=== PATIENT | female | born 1995 | race Caucasian/White ===

== ENCOUNTER 2016-12-06 05:05 | Emergency (ER) | payer OTHER, MEDICAID ==
[2016-12-06 05:16] VITALS: BP 137/85
[2016-12-06] MEDS ORDERED: Ketorolac INJ* 60 MG/2 ML VIAL IM ONE (05:32)
[2016-12-06] MEDS ORDERED: Ketorolac INJ* 30 MG/ML 1 ML VIAL ONE (05:46)
[2016-12-06] MEDS ORDERED: Ketorolac INJ* 30 MG/ML 1 ML VIAL IM ONE (05:48)
--- NOTE | 2016-12-06 06:01 | ED ---
Seth Lowry Matthew, scribed for Serafin Mejia MD on 12/06/16 at 0553 . Throat Pain/Nasal Congestion - HPI Summary HPI Summary: A 21 y/o female presents to the ED with dental pain since 12/04/16. The patient saw her dentist yesterday, but continues to have pain. 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 The pain is lcoated on the top and bottom of the teeth on the right side of the jaw. The pain radiates throughout the jaw, neck and into the posterior head. - History of Current Complaint Chief Complaint: EDDentalPain Hx Obtained From: Patient Onset/Duration: Lasting Days, Still Present Severity: Moderate Cough: None - Allergies/Home Medications Allergies/Adverse Reactions: Allergies Allergy/AdvReac Type Severity Reaction Status Date / Time Aspirin Allergy Unknown Shakes Verified 05/21/16 11:00 PMH/Surg Hx/FS Hx/Imm Hx Endocrine/Hematology History: Denies: Hx Anticoagulant Therapy, Hx Diabetes, Hx Thyroid Disease Cardiovascular History: Denies: Hx Hypertension, Hx Pacemaker/ICD Respiratory History: Denies: Hx Asthma, Hx Chronic Obstructive Pulmonary Disease (COPD) GI History: Denies: Hx Ulcer History: Denies: Hx Renal Disease Neurological History: Denies: Hx Dementia, Hx Seizures Psychiatric History: Reports: Hx Depression, Other Psychiatric Issues/Disorders Denies: Hx Substance Abuse - Surgical History Surgery Procedure, Year, and Place: surgical age 12 Infectious Disease History: No Infectious Disease History: Denies: Hx Clostridium Difficile, Hx Hepatitis, Hx Human Immunodeficiency Virus (HIV), Hx of Known/Suspected MRSA, Hx Shingles, Hx Tuberculosis, Hx Known/ Suspected VRE, Hx Known/Suspected VRSA, History Other Infectious Disease, Traveled Outside the [place] in Last 30 Days - Family History Known Family History: Positive: Hypertension, Diabetes Negative: Blood Disorder - Social History Alcohol Use: Rare Substance Use Type: Reports: None Smoking Status (MU): Light Every Day Tobacco Smoker Type: Cigarettes Amount Used/How Often: 1 cig./day Length of Time of Smoking/Using Tobacco: 9 years Have You Smoked in the Last Year: No Review of Systems Constitutional: Negative Eyes: Negative Positive: Dental Pain - top and bottom of the right side of the mouth Cardiovascular: Negative Respiratory: Negative Gastrointestinal: Negative Genitourinary: Negative Musculoskeletal: Negative Skin: Negative Neurological: Negative Psychological: Normal All Other Systems Reviewed And Are Negative: Yes Physical Exam Triage Information Reviewed: Yes Vital Signs On Initial Exam: Initial Vitals Temp Pulse Resp BP Pulse Ox 99.1 F 86 18 137/85 99 12/06/16 05:11 12/06/16 05:11 12/06/16 05:11 12/06/16 05:11 12/06/16 05:11 Vital Signs Reviewed: Yes Appearance: Positive: Well-Appearing, Pain Distress - mild pain Skin: Positive: Warm Head/Face: Positive: Normal Head/Face Inspection Dental: Positive: Other - generalized poor dentition Respiratory/Lung Sounds: Positive: Breath Sounds Present Neurological: Positive: Alert, Oriented to Person Place, Time Psychiatric: Positive: Affect/Mood Appropriate Diagnostics - Vital Signs Vital Signs Temp Pulse Resp BP Pulse Ox 12/06/16 05:14 99.1 F 83 16 137/85 99 12/06/16 05:11 99.1 F 86 18 137/85 99 - Laboratory Lab Statement: Any lab studies that have been ordered have been reviewed, and results considered in the medical decision making process. EENT Course/Dx - Diagnoses Provider Diagnoses: Pain, dental Discharge - Discharge Plan Condition: Stable Disposition: HOME Patient Education Materials: Toothache (ED) Referrals: Chevy Shah MD [Primary Care Provider] - 3 Days Additional Instructions: Please follow-up with your dentist as soon as possible. The documentation as recorded by the Seth mckeon Matthew accurately reflects the service I personally performed and the decisions made by , Serafin Mejia MD.
[2016-12-06] MEDS ORDERED: oxyCODONE/Acetamin 5/325 MG* TAB PO ONE (06:24)
[2016-12-06] MEDS ORDERED: oxyCODONE/Acetamin 5/325 MG* TAB ONE (06:27)
== END 2016-12-06 06:33 | disposition home or self-care (01) ==
LOC: ED 05:05
DX: K08.89 Other specified disorders of teeth and supporting structures (principal); F17.210 Nicotine dependence, cigarettes, uncomplicated
CPT/HCPCS: 96374; 96375; 99282; A9270-GY; J1885

== ENCOUNTER 2017-03-17 19:10 | Emergency (ER) | payer OTHER, MEDICAID ==
[2017-03-17 19:37] VITALS: BP 128/80
--- NOTE | 2017-03-18 20:20 | UC ---
UC General HPI - HPI Summary HPI Summary: One week of dizziness and weakness. Concern for . Intermittent vomiting for three days. Intermittent spotting this week. No fever. No sore throat. No headache. No abdominal pain. No cough. No neck stiffness. - History of Current Complaint Chief Complaint: UCDizziness Stated Complaint: WEAK,DIZZY,CRAMPS,PREG? VOMITING Time Seen by Provider: 03/17/17 19:17 Hx Obtained From: Patient, Family/Valve Inserter Hx Last Menstrual Period: 02/28/17 Onset/Duration: Gradual Onset, Lasting Weeks, Worse Since - three days Onset Severity: Mild Current Severity: Moderate Pain Intensity: 0 Associated Signs & Symptoms: Positive: Dizziness, Weakness. Negative: Abdominal Pain, Cough, Diarrhea, Dysuria, Decreased Oral Intake, Edema, Fever, Headache, Nausea, Palpitations, SOB, Trauma, Vomiting, Wheezing - Allergy/Home Medications Allergies/Adverse Reactions: Allergies Allergy/AdvReac Type Severity Reaction Status Date / Time Aspirin Allergy Unknown Shakes Verified 12/06/16 20:22 PMH/Surg Hx/FS Hx/Imm Hx Previously Healthy: Yes Other History Of: Negative For: Anticoagulant Therapy - Surgical History Surgical History: Yes Surgery Procedure, Year, and Place: surgical age 12 - Family History Known Family History: Positive: Hypertension, Diabetes Negative: Blood Disorder - Social History Occupation: Student Lives: With Family Alcohol Use: Rare Substance Use Type: None Smoking Status (MU): Light Every Day Tobacco Smoker Type: Cigarettes Amount Used/How Often: 1 cig./day Length of Time of Smoking/Using Tobacco: 9 years Have You Smoked in the Last Year: No Cessation Counseling: Patient Advised to Stop - Immunization History Most Recent Influenza Vaccination: season Most Recent Tetanus Shot: utd Most Recent Pneumonia Vaccination: never Review of Systems Constitutional: Fatigue Skin: Negative Eyes: Negative ENT: Negative Respiratory: Negative Cardiovascular: Negative Gastrointestinal: Negative Genitourinary: Frequency Motor: Negative Neurovascular: Negative Musculoskeletal: Negative Neurological: Weakness Psychological: Negative All Other Systems Reviewed And Are Negative: Yes Physical Exam Triage Information Reviewed: Yes Appearance: No Pain Distress, Well-Nourished, Other: - patinet seems socially withdrawn Vital Signs: Initial Vital Signs Pulse 90 03/17/17 19:25 Resp 18 03/17/17 19:25 BP 128/80 03/17/17 19:25 Pulse Ox 99 03/17/17 19:25 Vital Signs Reviewed: Yes Eye Exam: Normal Eyes: Positive: Conjunctiva Clear ENT Exam: Normal ENT: Positive: Normal ENT inspection, TMs normal Dental Exam: Normal Neck exam: Normal Neck: Positive: Supple, Nontender, No Lymphadenopathy Respiratory Exam: Normal Respiratory: Positive: Chest non-tender, Lungs clear, Normal breath sounds, No respiratory distress, No accessory muscle use Cardiovascular Exam: Normal Cardiovascular: Positive: RRR, No Murmur, Pulses Normal Abdominal Exam: Normal Abdomen Description: Positive: Nontender, No Organomegaly Musculoskeletal Exam: Normal Musculoskeletal: Positive: Strength Intact, ROM Intact Neurological Exam: Normal Psychological Exam: Normal Psychological: Positive: Normal Response To Family Skin Exam: Normal Course/Dx - Course Course Of Treatment: Patient agreed to seek care at emergency department - Differential Dx - Multi-Symptom Differential Diagnoses: Metabolic Abnormality, Urinary Tract Infection Provider Diagnoses: weakness dizziness - Physician Notifications Instructed by Provider To: MD Will See In ED Discharge - Discharge Plan Condition: Stable Disposition: HOME Patient Education Materials: Weakness (ED), Dizziness (ED) Referrals: Chevy Shah MD [Primary Care Provider] - Additional Instructions: YOU HAVE STATED THAT YOU TO WANT TO GO BY PRIVATE CAR FOR PROMPT EVALAUTION AT THE EMERGENCY DEPARTMENT, WHILE THIS PLAN IS AGREEABLE, PLEASE DRIVE SAFELY IN TRANSIT.
== END 2017-03-17 20:22 | disposition home or self-care (01) ==
LOC: UCEAST 19:10
DX: R53.1 Weakness (principal); R42 Dizziness and giddiness; R11.10 Vomiting, unspecified; N92.1 Excessive and frequent menstruation with irregular cycle; Z88.6 Allergy status to analgesic agent; F17.210 Nicotine dependence, cigarettes, uncomplicated; Z32.02 Encounter for pregnancy test, result negative
CPT/HCPCS: 81003; 84702; 93005; 99211; G0463

== ENCOUNTER 2017-03-17 20:41 | Emergency (ER) | payer OTHER, MEDICAID ==
[2017-03-17 23:18] VITALS: BP 129/83
[2017-03-18 00:23] LABS: Hematocrit 42 % (35-47); Hemoglobin 14.2 g/dl (12.0-16.0); Mean Corpuscular HGB Conc 34 g/dl (31-36); Mean Corpuscular Hemoglobin 29 pg (27-31); Mean Corpuscular Volume 86 fL (80-97); Mean Platelet Volume 9 um3 (7.4-10.4); Red Blood Count 4.87 10^6/ul (4.0-5.4); Red Cell Distribution Width 13 % (10.5-15); White Blood Count 11.4 10^3/ul (3.5-10.8)
[2017-03-18 00:42] LABS: ALT 16 U/L (7-52); AST 13 U/L (13-39); Albumin 4.4 g/dL (3.2-5.2); Alkaline Phosphatase 68 U/L (34-104); Anion Gap 8 mmol/L (2-11); BUN/Creatinine Ratio 20.6 (8-20); Blood Urea Nitrogen 14 mg/dL (6-24); CO2 Carbon Dioxide 23 mmol/L (22-32); Calcium 9.2 mg/dL (8.6-10.3); Chloride 105 mmol/L (101-111); EGFR African American 139.1 (>60); EGFR Non-African American 108.2 (>60); Globulin 2.9 g/dL (2-4); Glucose 99 mg/dL (70-100); Lipase 15 U/L (11.0-82.0); Potassium 3.5 mmol/L (3.5-5.0); Sodium 136 mmol/L (133-145); Total Protein 7.3 g/dL (6.4-8.9)
[2017-03-18] MEDS ORDERED: DOXYcycline CAP(*) 100 MG PO ONE (02:09)
[2017-03-18] MEDS ORDERED: metroNIDAZOLE TAB* 250 MG PO ONE (02:09)
[2017-03-18] MEDS ORDERED: cefTRIAXone VIAL(*) 250 MG VIAL IM ONE (02:09)
--- NOTE | 2017-03-18 02:13 | ED ---
GI/ HPI - HPI Summary HPI Summary: 21F presents with pelvic pain and fevers for a couple days. She has been having uterus cramping. She is unsure if she has other STDs as she just finished a course of valtrex. She states her weight has been fluctuating. She admits to dizziness and a headache. She denies any chest pain, SOB, or cough. She denies eating anything different or every having this pain before. She denies any pain with urination, frequency, urgency, hematuria. She admits to occasionally spotting but had negative at urgent care. She admits to nausea and vomiting. - History of Current Complaint Chief Complaint: EDDizziness Time Seen by Provider: 03/17/17 23:56 Stated Complaint: DIZZINESS/HEADACHE/NAUSEA Hx Last Menstrual Period: 02/28/17 Pain Intensity: 6 - Allergy/Home Medications Allergies/Adverse Reactions: Allergies Allergy/AdvReac Type Severity Reaction Status Date / Time Aspirin Allergy Unknown Shakes Verified 12/06/16 20:22 PMH/Surg Hx/FS Hx/Imm Hx Endocrine/Hematology History: Denies: Hx Anticoagulant Therapy, Hx Diabetes, Hx Thyroid Disease Cardiovascular History: Denies: Hx Hypertension, Hx Pacemaker/ICD Respiratory History: Denies: Hx Asthma, Hx Chronic Obstructive Pulmonary Disease (COPD) GI History: Denies: Hx Ulcer History: Denies: Hx Renal Disease Neurological History: Denies: Hx Dementia, Hx Seizures Psychiatric History: Reports: Hx Depression, Other Psychiatric Issues/Disorders Denies: Hx Substance Abuse - Surgical History Surgery Procedure, Year, and Place: surgical age 12 - Immunization History Date of Tetanus Vaccine: utd Date of Influenza Vaccine: utd Infectious Disease History: No Infectious Disease History: Denies: Hx Clostridium Difficile, Hx Hepatitis, Hx Human Immunodeficiency Virus (HIV), Hx of Known/Suspected MRSA, Hx Shingles, Hx Tuberculosis, Hx Known/ Suspected VRE, Hx Known/Suspected VRSA, History Other Infectious Disease, Traveled Outside the [place] in Last 30 Days - Family History Known Family History: Positive: Hypertension, Diabetes Negative: Blood Disorder - Social History Alcohol Use: Rare Substance Use Type: Reports: Marijuana Substance Use Comment - Amount & Last Used: nohting recently Smoking Status (MU): Light Every Day Tobacco Smoker Type: Cigarettes Amount Used/How Often: 1 cig./day Length of Time of Smoking/Using Tobacco: 9 years Have You Smoked in the Last Year: No Review of Systems Positive: Fever Negative: Chest Pain Negative: Shortness Of Breath Positive: Abdominal Pain, Vomiting, Nausea. Negative: Diarrhea All Other Systems Reviewed And Are Negative: Yes Physical Exam Triage Information Reviewed: Yes Vital Signs On Initial Exam: Initial Vitals Temp Pulse Resp BP Pulse Ox 98.7 F 78 16 129/79 98 03/17/17 20:43 03/17/17 20:43 03/17/17 20:43 03/17/17 20:43 03/17/17 20:43 Vital Signs Reviewed: Yes Appearance: Positive: Well-Appearing Skin: Positive: Warm, Dry Head/Face: Positive: Normal Head/Face Inspection Eyes: Positive: Normal, EOMI, ADALGISA, Conjunctiva Clear ENT: Positive: Normal ENT inspection, Pharynx normal, TMs normal Respiratory/Lung Sounds: Positive: Clear to Auscultation, Breath Sounds Present Cardiovascular: Positive: Normal, RRR Abdomen Description: Positive: Soft, Other: - tenderness in bilateral lower quadrants Bowel Sounds: Positive: Present Pelvic Exam: Positive: external exam normal, speculum exam normal, discharge, tender w/ cervical motion - Dianna Coma Scale Coma Scale Total: 15 Diagnostics - Vital Signs Vital Signs Temp Pulse Resp BP Pulse Ox 03/17/17 23:13 99 F 77 16 129/83 98 03/17/17 22:00 98.4 F 81 16 110/76 100 03/17/17 20:43 98.7 F 78 16 129/79 98 - Laboratory Lab Results: Lab Results 03/18/17 03/18/17 Range/Units 00:12 00:12 WBC 11.4 H (3.5-10.8) 10^3/ul RBC 4.87 (4.0-5.4) 10^6/ul Hgb 14.2 (12.0-16.0) g/dl Hct 42 (35-47) % MCV 86 (80-97) fL MCH 29 (27-31) pg MCHC 34 (31-36) g/dl RDW 13 (10.5-15) % Plt Count 257 (150-450) 10^3/ul MPV 9 (7.4-10.4) um3 Neut % (Auto) 58.4 (38-83) % Lymph % (Auto) 34.9 (25-47) % Gosper % (Auto) 5.1 (1-9) % Eos % (Auto) 1.3 (0-6) % Baso % (Auto) 0.3 (0-2) % Absolute Neuts (auto) 6.7 (1.5-7.7) 10^3/ul Absolute Lymphs (auto) 4.0 (1.0-4.8) 10^3/ul Absolute Monos (auto) 0.6 (0-0.8) 10^3/ul Absolute Eos (auto) 0.2 (0-0.6) 10^3/ul Absolute Basos (auto) 0 (0-0.2) 10^3/ul Absolute Nucleated RBC 0 10^3/ul Nucleated RBC % 0 Sodium 136 (133-145) mmol/L Potassium 3.5 (3.5-5.0) mmol/L Chloride 105 (101-111) mmol/L Carbon Dioxide 23 (22-32) mmol/L Anion Gap 8 (2-11) mmol/L BUN 14 (6-24) mg/dL Creatinine 0.68 (0.51-0.95) mg/dL Est GFR ( Amer) 139.1 (>60) Est GFR (Non-Af Amer) 108.2 (>60) BUN/Creatinine Ratio 20.6 H (8-20) Glucose 99 (70-100) mg/dL Calcium 9.2 (8.6-10.3) mg/dL Total Bilirubin 0.50 (0.2-1.0) mg/dL AST 13 (13-39) U/L ALT 16 (7-52) U/L Alkaline Phosphatase 68 (34-104) U/L C-React Prot High Sens 2.70 mg/L Total Protein 7.3 (6.4-8.9) g/dL Albumin 4.4 (3.2-5.2) g/dL Globulin 2.9 (2-4) g/dL Albumin/Globulin Ratio 1.5 (1-3) Lipase 15 (11.0-82.0) U/L Beta HCG, Quant < 0.60 mIU/mL Result Diagrams: 03/18/17 00:12 03/18/17 00:12 Lab Statement: Any lab studies that have been ordered have been reviewed, and results considered in the medical decision making process. GIGU Course/Dx - Course Course Of Treatment: 21F presents with pelvic pain and fevers for a couple days. She has been having uterus cramping. She is unsure if she has other STDs as she just finished a course of valtrex. She states her weight has been fluctuating. She admits to dizziness and a headache. She denies any chest pain , SOB, or cough. She denies eating anything different or every having this pain before. She denies any pain with urination, frequency, urgency, hematuria. on exam has tenderness in bilateral lower quadrants. pelvic exam CMT. labs wbc 11. will treat for PID. patient understands and agrees with plan. - Diagnoses Differential Diagnoses - Female: Ovarian Cyst, Pelvic Inflammatory Disease, Urinary Tract Infection Provider Diagnoses: PID (acute pelvic inflammatory disease) Discharge - Discharge Plan Condition: Good Disposition: HOME Prescriptions: DOXYcycline CAP(*) [DOXYcycline 100MG CAP(*)] 100 mg PO BID #27 cap Metronidazole [Flagyl 500 MG TAB] 500 mg PO BID #27 tab Ondansetron ODT TAB* [Zofran 4 MG Odt TAB*] 4 mg PO Q6H PRN #16 tab.odt PRN Reason: Nausea Patient Education Materials: Pelvic Inflammatory Disease (ED) Forms: *Work Release Referrals: Chevy Shah MD [Primary Care Provider] - Additional Instructions: Take doxycycline twice a day for 14 days, use sunscreen and take with food Take flagyl twice a day for 14 days, avoid alcohol Drink plenty of fluids Take Zofran every 6 hours as needed for nausea Return to ED if develop persistent fever, unable to keep anything down, or any new or worsening symptoms
[2017-03-18] MEDS ORDERED: Lidocaine 1%* 5 ML VIAL ONE (02:24)
== END 2017-03-18 02:44 | disposition home or self-care (01) ==
LOC: ED 20:41
DX: N73.9 Female pelvic inflammatory disease, unspecified (principal); R10.9 Unspecified abdominal pain; R50.9 Fever, unspecified; R10.2 Pelvic and perineal pain; R42 Dizziness and giddiness; R11.2 Nausea with vomiting, unspecified; F17.210 Nicotine dependence, cigarettes, uncomplicated
CPT/HCPCS: 36415; 80053; 83690; 84702; 85025; 86141; 86703; 87480; 87491; 87510; 87591; 87661; 96372; 99283; A9270-GY; J0696

== ENCOUNTER 2017-06-09 12:37 | Emergency (ER) | payer MEDICAID, OTHER ==
[2017-06-09 12:46] VITALS: BP 120/72
--- NOTE | 2017-06-09 14:11 | UC ---
Respiratory Complaint HPI - HPI Summary HPI Summary: Patient presents with 1-2 week onset complaints of generalized fatigue and malaise, sore throat, chest congestion and persistent coughing. She reports nasal drainage, PND, that bothers her at night, now hears wheezing at night. She also reports nausea. Shes reports low grade fevers. She has not been able to go to work due to her illness. She states she has been exposed to other members in the house that have been ill with respiratory illness. - History of Current Complaint Chief Complaint: UCGeneralIllness Stated Complaint: SORE THROAT Time Seen by Provider: 06/09/17 13:50 Hx Obtained From: Patient Hx Last Menstrual Period: Unknown ?: No Onset/Duration: Gradual Onset, Lasting Days Timing: Constant Severity Initially: Mild Severity Currently: Moderate Pain Intensity: 2 Pain Scale Used: 0-10 Numeric Character: Cough: Productive Aggravating Factors: Deep Breaths, Recumbent Position Alleviating Factors: Upright Position, Spontaneous Resolution Associated Signs And Symptoms: Positive: Fever, Chills, Wheezing, URI, Nasal Congestion, Sinus Discomfort - Risk Factors Pulmonary Embolism Risk Factors: Negative Pseudomonas Risk Factors: Negative Tuberculosis Risk Factors: Negative - Allergies/Home Medications Allergies/Adverse Reactions: Allergies Allergy/AdvReac Type Severity Reaction Status Date / Time Aspirin Allergy Unknown Shakes Verified 06/09/17 12:46 PMH/Surg Hx/FS Hx/Imm Hx Previously Healthy: Yes Other History Of: Negative For: Anticoagulant Therapy - Surgical History Surgical History: Yes Surgery Procedure, Year, and Place: surgical age 12 - Family History Known Family History: Positive: Hypertension, Diabetes Negative: Blood Disorder - Social History Occupation: Employed Full-time Lives: Alone Alcohol Use: None Substance Use Type: None Substance Use Comment - Amount & Last Used: nohting recently Smoking Status (MU): Current Some Day Smoker Type: Cigarettes Amount Used/How Often: 1 cig./week Length of Time of Smoking/Using Tobacco: 9 years Have You Smoked in the Last Year: No - Immunization History Most Recent Influenza Vaccination: Not UTD Most Recent Tetanus Shot: utd Most Recent Pneumonia Vaccination: never Review of Systems Constitutional: Fever, Chills, Fatigue Skin: Negative Eyes: Negative ENT: Sore Throat, Ear Ache, Nasal Discharge, Sinus Congestion Respiratory: Cough Cardiovascular: Negative Gastrointestinal: Nausea Genitourinary: Negative Motor: Negative Neurovascular: Negative Musculoskeletal: Negative Neurological: Negative Psychological: Negative All Other Systems Reviewed And Are Negative: Yes Physical Exam Triage Information Reviewed: Yes Appearance: Ill-Appearing Vital Signs: Initial Vital Signs Temp 98.2 F 06/09/17 12:41 Pulse 86 06/09/17 12:41 Resp 20 06/09/17 12:41 BP 120/72 06/09/17 12:41 Pulse Ox 99 06/09/17 12:41 Vital Signs Reviewed: Yes Eye Exam: Normal ENT: Positive: Nasal congestion, Nasal drainage Neck exam: Normal Neck: Positive: 1 Respiratory Exam: Normal Respiratory: Positive: Rhonchi Cardiovascular Exam: Normal Abdominal Exam: Normal Musculoskeletal Exam: Normal Neurological Exam: Normal Psychological Exam: Normal Skin Exam: Normal UC Diagnostic Evaluation - Laboratory O2 Sat by Pulse Oximetry: 99 Respiratory Course/Dx - Course Course Of Treatment: Patient presents with URI and was treated with albuterol, augmentin and tessalon pearles. He was told to follow up with is PCP in two days , and if his symtpoms worsen to go to the ER. - Differential Dx/Diagnosis Differential Diagnosis/HQI/PQRI: Bronchitis Provider Diagnoses: bronchitis Discharge - Discharge Plan Condition: Stable Disposition: HOME Prescriptions: Albuterol HFA INHALER* [Ventolin HFA Inhaler*] 1 puff INH Q4H PRN #1 mdi PRN Reason: Cough Amoxicillin/Clavulanate TAB* [Augmentin TAB 500 mg*] 500 mg PO BID #20 tab Benzonatate [TESSALON 200 MG CAP] 200 mg PO TID #30 cap Patient Education Materials: Acute Bronchitis (ED) Forms: *Work Release Referrals: Chevy Shah MD [Primary Care Provider] -
== END 2017-06-09 14:00 | disposition home or self-care (01) ==
LOC: UCEAST 12:37
DX: J40 Bronchitis, not specified as acute or chronic (principal); R50.9 Fever, unspecified; R11.0 Nausea; Z88.6 Allergy status to analgesic agent; Z72.0 Tobacco use
CPT/HCPCS: 99212; G0463

== ENCOUNTER 2017-07-05 10:09 | Emergency (ER) | payer MEDICAID, OTHER ==
[2017-07-05 10:16] VITALS: BP 119/69
--- NOTE | 2017-07-05 10:43 | UC ---
Respiratory Complaint HPI - HPI Summary HPI Summary: 21 y/o female presents to the urgent care c/o sore throat, productive cough, nasal congestion, sinus pain for the past 2 weeks. pt reports she was here on Dx with acute bronchitis Rx Augmentin and albuterol inhaler. symptoms resolved after ABX Tx. But now returned and are getting worse in the past week. She has been using the inhaler, she has mild wheezing and SOB at night time. Pt has taken Robistussin w/o any improvement. Pt denies fever, chest smith, abdominal pain, N/V/D. LMP:06/22/2017. - History of Current Complaint Hx Obtained From: Patient Hx Last Menstrual Period: 06/21/17 ?: No Onset/Duration: Gradual Onset, Lasting Weeks - 2 weeks, Still Present, Worse Since - last week Timing: Intermittent Episodes - cough Severity Initially: Mild Severity Currently: Moderate Pain Intensity: 4 - sinus pain Pain Scale Used: 0-10 Numeric Character: Cough: Productive, Sputum Description: - green Alleviating Factors: Spontaneous Resolution Associated Signs And Symptoms: Positive: Wheezing, URI. Negative: Fever, Chills - Risk Factors Pulmonary Embolism Risk Factors: Negative Cardiac Risk Factors: Negative Pseudomonas Risk Factors: Negative Tuberculosis Risk Factors: Negative <Bren Vaughan - Last Filed: 07/06/17 19:54> <Antonina Mcneil - Last Filed: 07/07/17 09:10> - History of Current Complaint Chief Complaint: UCRespiratory Stated Complaint: CONGESTED Time Seen by Provider: 07/05/17 10:38 - Allergies/Home Medications Allergies/Adverse Reactions: Allergies Allergy/AdvReac Type Severity Reaction Status Date / Time Aspirin Allergy Unknown Shakes Verified 07/05/17 10:12 PMH/Surg Hx/FS Hx/Imm Hx Previously Healthy: Yes - pt denies PMHX Other History Of: Negative For: Anticoagulant Therapy - Surgical History Surgical History: Yes Surgery Procedure, Year, and Place: surgical age 12 - Family History Known Family History: Positive: Cardiac Disease, Hypertension, Diabetes Negative: Blood Disorder - Social History Occupation: Student Lives: With Family Alcohol Use: None Substance Use Type: None Substance Use Comment - Amount & Last Used: nohting recently Smoking Status (MU): Current Some Day Smoker Type: Cigarettes Amount Used/How Often: 1 cig./week Length of Time of Smoking/Using Tobacco: 9 years Have You Smoked in the Last Year: No - Immunization History Most Recent Influenza Vaccination: Not UTD Most Recent Tetanus Shot: utd Most Recent Pneumonia Vaccination: never <Bren Vaughan - Last Filed: 07/06/17 19:54> Review of Systems Constitutional: Negative Skin: Negative Eyes: Negative ENT: Sore Throat, Sinus Congestion Respiratory: Shortness Of Breath, Cough, Other - wheezing Gastrointestinal: Negative Genitourinary: Negative Motor: Negative Neurovascular: Negative Musculoskeletal: Negative Neurological: Negative Psychological: Negative Is Patient Immunocompromised?: No All Other Systems Reviewed And Are Negative: Yes <Bren Vaughan - Last Filed: 07/06/17 19:54> Physical Exam Triage Information Reviewed: Yes Vital Signs: Initial Vital Signs Temp 97.7 F 07/05/17 10:13 Pulse 79 07/05/17 10:13 Resp 16 07/05/17 10:13 BP 119/69 07/05/17 10:13 Pulse Ox 100 07/05/17 10:13 - Additional Comments Vital Signs Reviewed: Yes General: well developed, well nourished female sitting in the examining table w/ o any apparent distress Eyes: Positive: Conjunctiva Clear - PERRLA, EOMI, fundi grossly normal ENT: Positive: Normal ENT inspection, Hearing grossly normal, Pharynx normal, Nasal congestion - edematous and erythematous nasal mucosa, Nasal drainage - yellowish drainage, TMs normal. Negative: Tonsillar swelling, Tonsillar exudate Neck: Positive: Supple, Nontender, No Lymphadenopathy Respiratory: no orthopnea or dyspnea. Able to speak in full sentences, no retractions or accessory muscle use, no tripod position, stridor, or head bobbing. breath sunds present. Scattered rhonchi and mild wheezes on B/L posterior lungs, no rales. Cardiovascular: Positive: RRR, No Murmur, Pulses Normal, Brisk Capillary Refill Abdomen Description: Positive: Nontender, No Organomegaly, Soft. Negative: CVA Tenderness (R), CVA Tenderness (L) Bowel Sounds: Positive: Present Musculoskeletal Exam: Normal Musculoskeletal: Positive: Strength Intact, ROM Intact, No Edema Neurological Exam: Normal Psychological Exam: Normal Skin Exam: Normal <Bren Vaughan - Last Filed: 07/06/17 19:54> Vital Signs: Initial Vital Signs Temp 97.7 F 07/05/17 10:13 Pulse 79 07/05/17 10:13 Resp 16 07/05/17 10:13 BP 119/69 07/05/17 10:13 Pulse Ox 100 07/05/17 10:13 <Antonina Mcneil - Last Filed: 07/07/17 09:10> Diagnostic Evaluation - Laboratory O2 Sat by Pulse Oximetry: 100 <Bren Vaughan - Last Filed: 07/06/17 19:54> Respiratory Course/Dx - Course Course Of Treatment: 21 y/o female presents to the urgent care c/o sore throat, productive cough, nasal congestion, sinus pain for the past 2 weeks. pt reports she was here on 06/09/2017 Dx with acute bronchitis Rx Augmentin and albuterol inahler. symptoms resolved after ABX Tx. But now returned and are getting worse in the past week. She has been using the inhaler, she has mild wheezing and SOB at night time. Pt has taken Robistussin w/o any improvement. Pt denies fever, chest smith, abdominal pain, N/V/D. LMP:06/22/2017. Hx obtained. test: negative, Chest X-ray ordered, Impression, no cardiopulmonary disease noted. Pt with scattered rhonchi and wheezes on postrior lung on examiantion. pt given Prednisone tabs PO and albuterol inahaler. pt tolerated well treatment. B/L lungs cleared. Pt Rx same medications adn Z-felipe for acute bronchitis. Pt advised to increase fluid intake and eat well. if not improvement or worsening of symptoms to return to the urgent care or f/u with PCP for further management. pt understood and agreed with plan of care - Differential Dx/Diagnosis Differential Diagnosis/HQI/PQRI: Asthma, Bronchitis, Influenza, Laryngitis, Lower Resp Infection, Sinusitis Provider Diagnoses: 1- Acute bronchitis <Bren Vaughan - Last Filed: 07/06/17 19:54> Discharge <Bren Vaughan - Last Filed: 07/06/17 19:54> <Antonina Mcneil - Last Filed: 07/07/17 09:10> - Discharge Plan Condition: Stable Disposition: HOME Prescriptions: Albuterol HFA INHALER* [Ventolin HFA Inhaler*] 1 puff INH Q4H PRN #1 mdi PRN Reason: Cough Azithromyxin FELIPE (NF) [Z-Felipe (Zithromax) 250 mg tabs #6] 2 tab PO .TODAY, THEN 1 DAILY #6 tab Benzonatate CAP* [Tessalon 100 MG CAP*] 100 mg PO TID PRN #15 cap PRN Reason: Cough predniSONE TAB* [Deltasone TAB*] 20 mg PO DAILY #8 tab Patient Education Materials: Acute Bronchitis (ED) Forms: *Work Release Referrals: Chevy Shah MD [Primary Care Provider] - 3 Days Additional Instructions: 1-Please take full course of antibiotic to avoid resistance. Take prednisone PO as directed 2-Take Tessalon PO tabs as directed and use the albuterol inhaler to alleviate cough. Increase fluid intake, rest and eat well. 3- If symptoms do not improve or worsen or your develop SOB with fever and severe wheezing please go immediately to the ER further evaluation and treatment. 4- F/u with your PCP in 2-3 days for further management Attestation Statement User Type: Provider - I was available for consult. This patient was seen by the ELVIN. The patient was not presented to, seen by, or examined by me. -Jam <Antonina Mcneil - Last Filed: 07/07/17 09:10>
--- NOTE | 2017-07-05 11:27 | RAD ---
HISTORY: Productive cough COMPARISONS: Report dated March 09, 2005, images are not available time dictation VIEWS: 4: Frontal dual-energy and lateral views of the chest. FINDINGS: CARDIOMEDIASTINAL SILHOUETTE: The cardiomediastinal silhouette is normal. CARLOS: The carlos are normal. PLEURA: The costophrenic angles are sharp. No pleural abnormalities are noted. LUNG PARENCHYMA: The lungs are clear. ABDOMEN: The upper abdomen is clear. There is no subphrenic gas. BONES AND SOFT TISSUES: No bone or soft tissue abnormalities are noted. OTHER: None. IMPRESSION: NO ACTIVE CARDIOPULMONARY DISEASE.
[2017-07-05] MEDS ORDERED: Albuterol 2.5 MG/3 ML NEB.SOL* (0.083%) INH ONE (11:31)
[2017-07-05] MEDS ORDERED: Albuterol 2.5 MG/3 ML NEB.SOL* (0.083%) ONE ×2 (11:32)
[2017-07-05] MEDS ORDERED: predniSONE TAB* 20 MG PO ONE (11:46)
== END 2017-07-05 12:04 | disposition home or self-care (01) ==
LOC: UCEAST 10:09
DX: J20.9 Acute bronchitis, unspecified (principal); Z32.02 Encounter for pregnancy test, result negative; Z88.6 Allergy status to analgesic agent; Z72.0 Tobacco use
CPT/HCPCS: 71020; 84702; 99213; G0463; J7512

== ENCOUNTER 2017-09-15 10:30 | Emergency (ER) | payer OTHER, MEDICAID ==
--- NOTE | 2017-09-15 10:43 | UC ---
FLU HPI - HPI Summary HPI Summary: works at [employer], did get a flu vaccine, has 2 kids at home with similar sx--cc pain fever sore throat harsh cough for 2 days - History of Current Complaint Chief Complaint: UCRespiratory Stated Complaint: COUGH,FEVER,CONGESTED Time Seen by Provider: 09/15/17 11:00 Hx Obtained From: Patient Hx Last Menstrual Period: 06/21/17 ?: Yes - approx 4 weeks Onset/Duration: Sudden Onset, Lasting Days - 2, Still Present Severity Currently: Moderate Severity Initially: Moderate Associated Signs & Symptoms: Positive: Fever, Myalgia, Cough, Sore Throat, Nasal Congestion, Headache Related Hx: Possible Flu/Infectious Exposure - Allergy/Home Medications Allergies/Adverse Reactions: Allergies Allergy/AdvReac Type Severity Reaction Status Date / Time MS Aspirin [Aspirin] Allergy Unknown Shakes Verified 09/15/17 10:59 Home Medications: Home Medications 21/Iron Fu/Folic Acid [ Complete Caplet] 1 tab PO DAILY [History Confirmed 09/15/17] PMH/Surg Hx/FS Hx/Imm Hx Previously Healthy: Yes Other History Of: Negative For: Anticoagulant Therapy - Surgical History Surgical History: Yes Surgery Procedure, Year, and Place: surgical age 12 - Family History Known Family History: Positive: Cardiac Disease, Hypertension, Diabetes Negative: Blood Disorder - Social History Occupation: Employed Full-time Lives: With Family Alcohol Use: None Substance Use Type: None Substance Use Comment - Amount & Last Used: nohting recently Smoking Status (MU): Current Some Day Smoker Type: Cigarettes Amount Used/How Often: 1 cig./week Length of Time of Smoking/Using Tobacco: 9 years Have You Smoked in the Last Year: No Cessation Counseling: Patient Advised to Stop - Immunization History Most Recent Influenza Vaccination: Not UTD Most Recent Tetanus Shot: utd Most Recent Pneumonia Vaccination: never Review of Systems Constitutional: Fever, Chills, Fatigue Skin: Negative Eyes: Negative ENT: Sore Throat, Nasal Discharge, Sinus Congestion Respiratory: Cough Cardiovascular: Negative Gastrointestinal: Negative Genitourinary: Negative Motor: Negative Neurovascular: Negative Musculoskeletal: Arthralgia, Myalgia Neurological: Negative Psychological: Negative Is Patient Immunocompromised?: No All Other Systems Reviewed And Are Negative: No Physical Exam Triage Information Reviewed: Yes Appearance: Well-Nourished, Ill-Appearing, Pain Distress Vital Signs Reviewed: Yes Eye Exam: Normal Eyes: Positive: Conjunctiva Clear ENT Exam: Normal ENT: Positive: Normal ENT inspection, Hearing grossly normal, Pharynx normal, Nasal congestion, Nasal drainage, TMs normal, Uvula midline. Negative: Tonsillar swelling, Trismus, Muffled voice, Hoarse voice, Dental tenderness, Sinus tenderness Dental Exam: Normal Neck exam: Normal Neck: Positive: Supple, Nontender, No Lymphadenopathy Respiratory Exam: Normal Respiratory: Positive: Chest non-tender, Lungs clear, Normal breath sounds, No respiratory distress, No accessory muscle use Cardiovascular Exam: Normal Cardiovascular: Positive: RRR, No Murmur, Pulses Normal, Tachycardia Musculoskeletal Exam: Normal Musculoskeletal: Positive: Strength Intact, ROM Intact, No Edema Neurological Exam: Normal Neurological: Positive: Alert, Muscle Tone Normal Psychological Exam: Normal Skin Exam: Normal Diagnostics - Laboratory Diagnostic Studies Completed/Ordered: Influenza A(+) Flu Course/Dx - Course Course Of Treatment: Tamiflu, tylenol, ibuprofen, increase fluids follow with pcp - Differential Dx/Diagnosis Provider Diagnoses: Influenza A , Discharge - Discharge Plan Condition: Stable Disposition: HOME Prescriptions: Oseltamivir CAP* [Tamiflu CAP*] 75 mg PO BID #10 cap Patient Education Materials: Acetaminophen (By mouth), Influenza (ED) Forms: *Work Release Referrals: Chevy Shah MD [Medical Doctor] - If Needed
[2017-09-15 11:06] VITALS: BP 119/72
== END 2017-09-15 12:22 | disposition home or self-care (01) ==
LOC: UCEAST 10:30
DX: O98.519 Other viral diseases complicating pregnancy, unspecified trimester (principal); J10.1 Influenza due to other identified influenza virus with other respiratory manifestations; O99.330 Smoking (tobacco) complicating pregnancy, unspecified trimester; F17.210 Nicotine dependence, cigarettes, uncomplicated
CPT/HCPCS: 87502; 99212; G0463

== ENCOUNTER 2018-02-16 10:11 | Emergency (ER) | payer BC, MEDICAID ==
[2018-02-16 10:19] VITALS: BP 123/73
--- NOTE | 2018-02-16 10:32 | UC ---
Complaint Female HPI - HPI Summary HPI Summary: 22 yo female presents with slight burning during urination and mild white vaginal discharge since yesterday. She tells me that she has a hx of many UTIs and yeast infections, but is unsure which this feels like. She is currently 6.5months . Denies fever, chills, abdominal pain/cramping, vaginal bleeding, hematuria, or flank pain. - History Of Current Complaint Chief Complaint: UCGU Stated Complaint: URINARY COMPLAINT Time Seen by Provider: 02/16/18 10:29 Hx Obtained From: Patient Hx Last Menstrual Period: edc 05/13/18 Onset/Duration: Sudden Onset Timing: Constant Severity Initially: Mild Severity Currently: Mild Pain Intensity: 4 Pain Scale Used: 0-10 Numeric - Allergies/Home Medications Allergies/Adverse Reactions: Allergies Allergy/AdvReac Type Severity Reaction Status Date / Time aspirin Allergy Nausea Verified 02/16/18 10:15 PMH/Surg Hx/FS Hx/Imm Hx - Additional Past Medical History Additional PMH: None Other History Of: Negative For: Anticoagulant Therapy - Surgical History Surgical History: None Surgery Procedure, Year, and Place: Uterine Ablasion - Family History Known Family History: Positive: Cardiac Disease, Hypertension, Diabetes Negative: Blood Disorder - Social History Lives: With Family Alcohol Use: None Substance Use Type: None Substance Use Comment - Amount & Last Used: nohting recently Smoking Status (MU): Never Smoked Tobacco Type: Cigarettes Amount Used/How Often: 1 cig./week Length of Time of Smoking/Using Tobacco: 9 years Have You Smoked in the Last Year: No - Immunization History Most Recent Influenza Vaccination: Not UTD Most Recent Tetanus Shot: utd Most Recent Pneumonia Vaccination: never Review of Systems Constitutional: Negative Skin: Negative Respiratory: Negative Cardiovascular: Negative Gastrointestinal: Negative Genitourinary: Dysuria, Vaginal/Penile Discharge Neurovascular: Negative Neurological: Negative Psychological: Negative All Other Systems Reviewed And Are Negative: Yes Physical Exam - Summary Physical Exam Summary: GENERAL: NAD. WDWN. No pain distress. SKIN: No rashes, sores, lesions, or open wounds. NECK: Supple. Nontender. No lymphadenopathy. CHEST: CTAB. No r/r/w. No accessory muscle use. Breathing comfortably and in no distress. CV: RRR. Without m/r/g. Pulses intact. Brisk cap refill. ABDOMEN: Soft. NTTP. No CVA tenderness. Bowel sounds present NEURO: Alert. CN II-XII grossly intact. PSYCH: Age appropriate behavior. Triage Information Reviewed: Yes Vital Signs: Initial Vital Signs Temp 98.2 F 02/16/18 10:15 Pulse 74 02/16/18 10:15 Resp 16 02/16/18 10:15 BP 123/73 02/16/18 10:15 Pulse Ox 99 02/16/18 10:15 Vital Signs Reviewed: Yes Pelvic Exam: Positive: External Exam Normal, No Masses, Discharge - Mild white moderately thick, Other - Assisted by Ann PHELPS. Negative: Active Bleeding, Blood, Lesions, Ulcers Complaint Female Dx - Course Course Of Treatment: Suspect yeast infection. Cultures were obtained for affirm and GC/Chlamydia as she would like STD culture testing as well. Rx for miconazole topical for 7 days - Differential Dx/Diagnosis Provider Diagnoses: Yeast infection vaginal Discharge - Sign-Out/Discharge Documenting (check all that apply): Patient Departure - Discharge Plan Condition: Stable Disposition: HOME Prescriptions: Miconazole TOPICAL CREAM 2%* [Monistat 2%*] 1 applic TOPICAL DAILY #1 tube Patient Education Materials: Yeast Infection (ED) Referrals: Jo Barney CNM [Primary Care Provider] - Additional Instructions: If you develop a fever, shortness of breath, chest pain, new or worsening symptoms - please call your PCP or go to the ED. 1) Please follow up with your OBGYN - Billing Disposition and Condition Condition: STABLE Disposition: Home
== END 2018-02-16 11:20 | disposition home or self-care (01) ==
LOC: UCEAST 10:11
DX: O98.819 Other maternal infectious and parasitic diseases complicating pregnancy, unspecified trimester (principal); B37.3 Candidiasis of vulva and vagina; Z88.6 Allergy status to analgesic agent; Z87.891 Personal history of nicotine dependence
CPT/HCPCS: 81003; 87480; 87491; 87510; 87591; 99212; G0463

== ENCOUNTER 2018-05-03 12:31 | Inpatient (IN) | payer BC, MEDICAID ==
[2018-05-03 13:22] LABS: Hematocrit 36 % (35-47); Hemoglobin 12.5 g/dl (12.0-16.0); Mean Corpuscular HGB Conc 34 g/dl (31-36); Mean Corpuscular Hemoglobin 30 pg (27-31); Mean Corpuscular Volume 86 fL (80-97); Mean Platelet Volume 10.1 um3 (7.4-10.4); Platelet Count 151 10^3/ul (150-450); Red Blood Count 4.23 10^6/ul (4.00-5.40); Red Cell Distribution Width 14 % (10.5-15); White Blood Count 7.7 10^3/ul (3.5-10.8)
[2018-05-03 13:25] LABS: Urine Appearance Clear; Urine Blood Negative (Negative); Urine Color Yellow; Urine Ketones Negative (Negative); Urine Protein Negative (Negative); Urine Specific Gravity 1.015 (1.010-1.030); Urine Urobilinogen Negative (Negative)
[2018-05-03 13:31] LABS: EGFR Non-African American 149.4 (>60)
[2018-05-03] MEDS ORDERED: Dinoprostone* 10 MG VAG.SUPP VAGINAL ONE (16:36)
--- NOTE | 2018-05-03 16:55 | HP ---
General Information - Reason for Visit Induction of labor, gestational hypertension - General Information Maternal Age: 22 Grav: 5 Para: 2 SAB: 1 IEA: 1 Estimated Due Date: 05/13/18 Determined By: LMP Maternal Blood Type and Rh: B Positive - Results this Serology/RPR Result: Non-Reactive Rubella Result: Immune HBsAg Result: Negative HIV Result: Negative GBS Culture Result: Negative Past Medical History Delivery History: Hx Uncomplicated Vaginal Delivery Pertinent Past Medical History: See Records - hx depression Pertinent Past Surgical History: See Records - D&E 2007 Pertinent Family History: See Records - DM, thyroid - Antepartal Records Antepartal Records: Reviewed, Complicated by: - rubella equivocal, BMI 35, subluxation of symphysis pubis Review of Systems Constitutional: Uncomfortable CV Complaint: No Respiratory: Shortness of Breath: No Gastrointestinal: Normal Bowel Movement, Nausea Genitourinary: No Dysuria, No Bleeding, No Leaking Fluid Musculoskeletal: No Epigastric Pain, Abdominal Pain Neurological: No Headache, No Visual Changes Movement: Normal Exam Allergies/Adverse Reactions: Allergies aspirin Allergy (Verified 02/16/18 10:15) Nausea T:98.3, R:17, P:85, BP:137/77 Lab Values - Entire Visit: Laboratory Tests 05/03/18 05/03/18 05/03/18 12:50 12:50 12:50 WBC 7.7 RBC 4.23 Hgb 12.5 Hct 36 MCV 86 MCH 30 MCHC 34 RDW 14 Plt Count 151 MPV 10.1 Sodium 137 Potassium 4.0 Chloride 109 Carbon Dioxide 20 L Anion Gap 8 BUN 11 Creatinine 0.51 Est GFR ( Amer) 180.8 Est GFR (Non-Af Amer) 149.4 BUN/Creatinine Ratio 21.6 H Glucose 126 H Calcium 8.7 Total Bilirubin 0.20 AST 14 ALT 14 Alkaline Phosphatase 172 H Total Protein 5.9 L Albumin 3.2 Globulin 2.7 Albumin/Globulin Ratio 1.2 Urine Color Yellow Urine Appearance Clear Urine pH 6.0 Ur Specific [place] 1.015 Urine Protein Negative Urine Ketones Negative Urine Blood Negative Urine Nitrate Negative Urine Bilirubin Negative Urine Urobilinogen Negative Ur Leukocyte Esterase Negative Urine Glucose Negative - Measurements Height: 5 ft 11 in Weight: 301 lb Weight in lbs: 301.621963 Body Mass Index (BMI): 42.0 Pre- Weight: 232 lb Weight Gained This : 69 lbs and 0 ozs - Exam Breast: Breast Exam Deferred CVA: No CVA Tenderness Extremities: No Edema Heart: Normal Rhythm/Heart Sounds HEENT: No Significant Findings Lungs: Clear Bilaterally Rectal: Rectal Exam Deferred Reflexes: DTR 2+ Thyroid: No Thyromegaly - Abdominal Exam Abdomen Exam: Non-Tender - Ultrasound/Biophysical Profile Ultrasound Status: Not Done Targeted Exam Findings Estimated Weight: 7lbs 9oz Cervical Exam: 2cm Effacement: 50% Station: -2 Presenting Part: Vertex Membrane Status: Intact EFM Findings - External Monitor Findings Baseline Heart Rate: 125 External Monitor Findings: Accelerations Present, No Pattern of Variable or Late Decelerations, Variability Moderate, Baseline Stable Contractions: None Assessment/Plan - Assessment 22 y.o. , G HTN, 38w4d - Obstetrical Risk Factors Obstetrical Risk Factors: Gestational Hypertension - Plan Plan: Induction, Cervical Ripening - Date/Time of Admission Date of Admission: 05/03/18 Time of Admission: 14:00
[2018-05-03] MEDS ORDERED: Nalbuphine* 10 MG/ML 1 ML VIAL IM PRN (18:45)
[2018-05-03] MEDS ORDERED: Acetaminophen TAB* 325 MG PO PRN (18:45)
[2018-05-03] MEDS ORDERED: Promethazine INJ(RESTRICTED)* 25 MG/ML 1 ML VIAL IM PRN (18:46)
[2018-05-03] MEDS ORDERED: Acetaminophen TAB* 325 MG ONE (19:12)
[2018-05-04] MEDS ORDERED: Buffered Lidocaine 0.9% SYRIN* 5 ML/SYR SYRINGE ONE (13:47)
--- NOTE | 2018-05-04 19:26 | PN ---
Progress Note - Progress Note Date of Service: 05/04/18 SOAP: Subjective: [Pt reports increased pressure and back pain and contractions getting closer together and more intense] Objective: [BP:137/77, P:85, R:17, T:98.3 FHT: 143bp, cervix on last exam: 5-/-1] amniotic fluid: clear Assessment: [22 y.o. IOL, gest. HTN, active labor] Plan: [1) Continue current care 2) Position changes and therapeutic support PRN 3) Anticipate vaginal delivery]
--- NOTE | 2018-05-04 19:32 | PN ---
Progress Note - Progress Note Date of Service: 05/04/18 - 9:44 SOAP: Subjective: [Pt reports she rested well overnight. Pt reports +FM, -VB. ] Objective: [BP:128/72, P:80, T:98.8 cervix: 2-/-1 AROM: clear] Assessment: [22 y.o. , Gest. HTN] Plan: [1) AROM, ambulation and reevaluate PRN]
[2018-05-04] MEDS ORDERED: Oxytocin in LR* 20 UNITS/1,000 ML BAG IVPB ONE (20:18)
[2018-05-04] MEDS ORDERED: fentaNYL* 50 MCG/ML 2 ML VIAL (100 MCG VIAL) ONE (22:45)
[2018-05-04 22:50] LABS: ABS Basophils 0.1 10^3/ul (0-0.2); ABS Eosinophils 0 10^3/ul (0-0.6); ABS Lymphocytes 1.1 10^3/ul (1.0-4.8); ABS Monocytes 0.6 10^3/ul (0-0.8); ABS Neutrophils 13.9 10^3/ul (1.5-7.7); ABS Nucleated RBC 0 10^3/ul; Eosinophil % 0.1 % (0-6); Hematocrit 37 % (35-47); Hemoglobin 12.8 g/dl (12.0-16.0); Lymphocyte % 6.8 % (25-47); Mean Corpuscular HGB Conc 34 g/dl (31-36); Mean Corpuscular Hemoglobin 30 pg (27-31); Mean Corpuscular Volume 87 fL (80-97); Nucleated Red Blood Cells % 0; Platelet Count 164 10^3/ul (150-450); Red Blood Count 4.32 10^6/ul (4.00-5.40); Red Cell Distribution Width 14 % (10.5-15); White Blood Count 15.6 10^3/ul (3.5-10.8)
[2018-05-04] MEDS ORDERED: Phenylephrine IV* 40 MCG/ML 10 ML SYRINGE IV PUSH PRN ×2 (23:24)
[2018-05-04] MEDS ORDERED: Sodium Citrate/Citric Acid* 15 ML UDC PO PRN (23:24)
[2018-05-04] MEDS ORDERED: Famotidine TAB* 20 MG PO PRN (23:24)
[2018-05-04] MEDS ORDERED: Oxytocin in LR* 20 UNITS/1,000 ML BAG IVPB SCH (23:45)
[2018-05-05] MEDS ORDERED: Lidocaine 2% VISCOUS* 15 ML UDC ONE (01:46)
[2018-05-05] MEDS ORDERED: Witch Hazel PAD* JAR TOPICAL PRN (02:03)
[2018-05-05] MEDS ORDERED: Dibucaine 1% 28.35 GM TUBE PR PRN (02:03)
[2018-05-05] MEDS ORDERED: Glycerin ADULT SUPP PR PRN (02:03)
[2018-05-05] MEDS ORDERED: Acetaminophen TAB* 325 MG PO PRN (02:03)
--- NOTE | 2018-05-05 02:06 | PROCNOTE ---
[facility] OB: Delivery Note - Delivery A Date of : 05/05/18 Time of : 01:54 Sex: Male Score 1 Minute: 9 Score 5 Minutes: 9 Gestational Age in Weeks and Days at Delivery: 38 Weeks and 6 Days Delivery Method: Spontaneous Vaginal Labor: Induced Did Patient attempt ?: N/A, No Previous Amniotic Fluid: Clear Estimated Blood Loss: 150 Anesthesia/Analgesia: ITF/Spinal for Labor Delivered By: Jo Barney - Perinecesar Perineal Injury: None/Intact Perineal Repair: None - Events Delivery Events of Note: Pitocin During Labor - Additional Delivery Notes Additional Delivery Notes: nuchal cord x 1 delivered through the cord
--- NOTE | 2018-05-05 02:11 | PN ---
Progress Note - Progress Note Date of Service: 05/04/18 - 8 PM Note: Pt with urge to push on some contractions, NST: cat 1, cervix /-. Trial of pushing with good maternal effort but cervix remains. Counseled pt on nitrous oxide for pain mgmt and to help with relaxation and not pushing. Pt consents. Proceed with nitrous.
--- NOTE | 2018-05-05 02:13 | PN ---
Progress Note - Progress Note Date of Service: 05/04/18 - 11:pm Note: Pt with little relief from nitrous, continued urge to push and still Advised Intrathecal and labor down with pitocin augmentation.
[2018-05-05] MEDS: Docusate CAP* 100 MG PO SCH ×3 (08:04→21:11)
[2018-05-05] MEDS: Ibuprofen TAB* 600 MG PO PRN ×3 (08:04→21:10)
[2018-05-05] MEDS ORDERED: Simethicone TAB* 80 MG TAB.CHEW PO SCH (08:30)
[2018-05-06 07:13] LABS: ABS Basophils 0 10^3/ul (0-0.2); ABS Eosinophils 0.2 10^3/ul (0-0.6); ABS Lymphocytes 2.7 10^3/ul (1.0-4.8); ABS Monocytes 0.7 10^3/ul (0-0.8); ABS Neutrophils 6.6 10^3/ul (1.5-7.7); ABS Nucleated RBC 0 10^3/ul; Eosinophil % 2.2 % (0-6); Hematocrit 35 % (35-47); Lymphocyte % 26.3 % (25-47); Mean Corpuscular HGB Conc 35 g/dl (31-36); Mean Corpuscular Hemoglobin 30 pg (27-31); Mean Corpuscular Volume 88 fL (80-97); Mean Platelet Volume 9.9 um3 (7.4-10.4); Nucleated Red Blood Cells % 0.1; Platelet Count 145 10^3/ul (150-450); Red Blood Count 3.98 10^6/ul (4.00-5.40); Red Cell Distribution Width 14 % (10.5-15); White Blood Count 10.2 10^3/ul (3.5-10.8)
[2018-05-06] MEDS ORDERED: Ferrous Gluconate TAB* 324 MG TAB PO SCH (09:00)
[2018-05-06] MEDS: Docusate CAP* 100 MG PO SCH ×3 (09:34→21:06)
[2018-05-07] MEDS: Docusate CAP* 100 MG PO SCH (08:10)
[2018-05-07 08:15] VITALS: BP 127/79
== END 2018-05-07 10:18 | disposition home or self-care (01) | DRG 560 ==
LOC: MCHOBOUT 12:31 → MCHOB 16:51
PROVIDERS: ADMIT Midwife; ATTEND Obstetrics & Gynecology
PROC: 10E0XZZ Delivery of Products of Conception, External Approach (ICD-10-PCS; principal; 2018-05-05)
PROC: 3E033VJ Introduction of Other Hormone into Peripheral Vein, Percutaneous Approach (ICD-10-PCS; 2018-05-05)
PROC: 10907ZC Drainage of Amniotic Fluid, Therapeutic from Products of Conception, Via Natural or Artificial Opening (ICD-10-PCS; 2018-05-05)
DX: O13.4 Gestational [pregnancy-induced] hypertension without significant proteinuria, complicating childbirth (principal); Z37.0 Single live birth; O99.344 Other mental disorders complicating childbirth; F32.9 Major depressive disorder, single episode, unspecified; O69.81X0 Labor and delivery complicated by cord around neck, without compression, not applicable or unspecified; Z3A.38 38 weeks gestation of pregnancy
CPT/HCPCS: 36415; 59200; 80053; 81003; 85025; 85027; 86850; 86900; 86901; A9270-GY; J2300; J2550; J3010

== ENCOUNTER 2018-08-21 09:28 | Emergency (ER) | payer OTHER, MEDICAID ==
[2018-08-21 09:39] VITALS: BP 129/81
--- NOTE | 2018-08-21 09:43 | UC ---
Complaint Female HPI - HPI Summary HPI Summary: Pt presents to stating on Monday she was having intercourse.States the penis slipped causing injury to her vaginal wall. Pt states had slight oozing blood through yesterday. Pt states she has used a wet cloth to gentle clean No edema. No bruising. No analgesia taken. Pt is 3 months post - vaginal delivery - no sutures/tears. Pt states has put warm soaks on area. No edema, no ecchymosis. No ongoing bleeding. Pt states "want it checked." Pt with a remote h/o chlaymdia. No other STDs. Nothing inserted into vagina other than penis - no piercings Pt's medications reviewed this visit. - History Of Current Complaint Chief Complaint: Buzz Stated Complaint: PERSONAL Time Seen by Provider: 08/21/18 09:41 Hx Obtained From: Patient Hx Last Menstrual Period: 31 july, had baby 3 months ago Onset/Duration: Sudden Onset Timing: Constant Severity Initially: Moderate Severity Currently: Moderate Pain Intensity: 6 Pain Scale Used: 0-10 Numeric - Allergies/Home Medications Allergies/Adverse Reactions: Allergies Allergy/AdvReac Type Severity Reaction Status Date / Time aspirin Allergy Nausea Verified 08/21/18 09:39 Home Medications: Home Medications Fenugreek Seed Extract [Fenugreek Blood Sugar Hea] 500 mg PO DAILY 08/21/18 [ History Confirmed 08/21/18] PMH/Surg Hx/FS Hx/Imm Hx Previously Healthy: Yes Other History Of: Negative For: Anticoagulant Therapy - Surgical History Surgical History: Yes Surgery Procedure, Year, and Place: Uterine Ablasion - Family History Known Family History: Positive: Cardiac Disease, Hypertension, Diabetes Negative: Blood Disorder - Social History Occupation: Works From/At Home Lives: With Family Alcohol Use: None Substance Use Type: None Substance Use Comment - Amount & Last Used: nohting recently Smoking Status (MU): Never Smoked Tobacco Type: Cigarettes Amount Used/How Often: 1 cig./week Length of Time of Smoking/Using Tobacco: 9 years Have You Smoked in the Last Year: No - Immunization History Most Recent Influenza Vaccination: 05/06/18 Most Recent Tetanus Shot: utd Most Recent Pneumonia Vaccination: never Review of Systems All Other Systems Reviewed And Are Negative: Yes Constitutional: Positive: Negative Skin: Positive: Other - vaginal area injury Genitourinary: Positive: Vaginal/Penile Pain, Ulceration/Lesion Physical Exam - Summary Physical Exam Summary: Vital Signs Reviewed: Yes A+Ox3, no distress, laughing Eyes: Conjunctiva Clear ENT: Hearing grossly normal neck: supple Respiratory: Positive: No respiratory distress, No accessory muscle use Cardiovascular: skin color reflect adequate perfusion abd: soft + BS no guarding, no rebound MATTIE Hickey at bedside: pt in lithotomy position Pt with 1cm linear ulcer appearing lesion inner aspect labia minora. + TTP. No drainage, no bleeding. No erythema, no edema. no fluctance. Pt with small punctate lesion proximal Musculoskeletal Exam: SUTTON x 4 without difficulty Neurological: Positive: Alert, ambulatory without difficulty Psychological: Positive: Normal Response To Family Skin: Positive: no rash, no ecchymosis - see Triage Information Reviewed: Yes Vital Signs: Initial Vital Signs Temp 99.0 F 08/21/18 09:32 Pulse 93 08/21/18 09:32 Resp 14 08/21/18 09:32 BP 129/81 08/21/18 09:32 Pulse Ox 97 08/21/18 09:32 Complaint Female Dx - Course Course Of Treatment: Pt presents for evaluation of vaginal wound. Pt states occurred during intercourse when penis slipped. Pt states mild bleeding x 2 days. now painful. tdap UTD. No analgesia taken. VSS. On exam pt with 1cm linear ulcerative appearing lesion - - no bleeding, edema + TTP d/w - no h/o herpes -culture taken. covered with lubricating ointment. d/w pt - apap safe with breast feeding. cover with lubriating ointment. heat soaks. f/u with family reunification specialist. return precautions. pt comfortable and in agreemeent with plan - Differential Dx/Diagnosis Provider Diagnosis: Vaginal lesion Discharge - Sign-Out/Discharge Documenting (check all that apply): Patient Departure All imaging exams completed and their final reports reviewed: No Studies - Discharge Plan Condition: Stable Disposition: HOME Patient Education Materials: Laceration (ED) Referrals: Jo Barney CNM [Primary Care Provider] - Additional Instructions: - The wound appears healthy and is starting to heal - IT is recommended you take Tylenol (acetaminophen) for pain. This is safe when breast feeding. - Place warm, wet soaks to the area 2-3 times a day - Okay to cover with a layer of vasoline / lubricating gel to prevent urine from irritating wound - As discussed, the provider took a culture of the wound, If you need any additional treatment, you will receive a call from a follow-up provider - Contact your tape stringer to schedule a follow-up appointment later this week. Contact your tape stringer for increased pain, drainage, fever, swelling or any other concerns - Billing Disposition and Condition Condition: STABLE Disposition: Home
[2018-08-23 21:24] LABS: HSV 1 PCR Negative (Negative); Herpes Source LABIA
== END 2018-08-21 10:30 | disposition home or self-care (01) ==
LOC: UCEAST 09:28
DX: N89.8 Other specified noninflammatory disorders of vagina (principal); Z88.6 Allergy status to analgesic agent
CPT/HCPCS: 87529; 99212; G0463

== ENCOUNTER 2018-11-12 12:18 | Emergency (ER) | payer OTHER, MEDICAID ==
[2018-11-12 12:44] VITALS: BP 138/74
--- NOTE | 2018-11-12 13:06 | UC ---
Back Pain HPI - HPI Summary HPI Summary: 22 yo female presents with low back and hip pain for the last 2 days. She tells me that she worked as a [employer] 3 days ago. The next day woke up with low back pain and b/l hip pain. Took tylenol and rested with no relief. Today symptoms have improved, but are still present - prompting her visit to . She denies injury. Has not taken anything OTC for her symptoms today. She denies dysuria, abdominal pain, n/v, rash, vaginal bleeding, saddle anesthesia, numbness, or loss of bowel/bladder control. - History of Current Complaint Chief Complaint: UCBackPain Stated Complaint: HIP/LEG/BACK PAIN Time Seen by Provider: 11/12/18 13:06 Hx Obtained From: Patient Hx Last Menstrual Period: unknown Onset/Duration: Sudden Onset Timing: Constant Severity Initially: Moderate Severity Currently: Moderate Pain Intensity: 7 Pain Scale Used: 0-10 Numeric - Allergies/Home Medications Allergies/Adverse Reactions: Allergies Allergy/AdvReac Type Severity Reaction Status Date / Time aspirin Allergy Nausea Verified 11/12/18 12:44 PMH/Surg Hx/FS Hx/Imm Hx - Additional Past Medical History Additional PMH: None Other History Of: Negative For: Anticoagulant Therapy - Surgical History Surgical History: Yes Surgery Procedure, Year, and Place: Uterine Ablasion - Family History Known Family History: Positive: Cardiac Disease, Hypertension, Diabetes Negative: Blood Disorder - Social History Occupation: Employed Full-time Lives: With Family Alcohol Use: None Substance Use Type: None Substance Use Comment - Amount & Last Used: nohting recently Smoking Status (MU): Former Smoker Type: Cigarettes Amount Used/How Often: 1 cig./week Length of Time of Smoking/Using Tobacco: 9 years Have You Smoked in the Last Year: No - Immunization History Most Recent Influenza Vaccination: 05/06/18 Most Recent Tetanus Shot: utd Most Recent Pneumonia Vaccination: never Review of Systems All Other Systems Reviewed And Are Negative: Yes Constitutional: Positive: Negative Skin: Positive: Negative Respiratory: Positive: Negative Cardiovascular: Positive: Negative Gastrointestinal: Positive: Negative Neurovascular: Positive: Negative Musculoskeletal: Positive: Other: - Low back and hip pain Neurological: Positive: Negative Psychological: Positive: Negative Physical Exam - Summary Physical Exam Summary: GENERAL: NAD. WDWN. No pain distress. SKIN: No rashes, sores, lesions, or open wounds. NECK: Supple. FROM. Nontender. No lymphadenopathy. CHEST: CTAB. No r/r/w. No accessory muscle use. Breathing comfortably and in no distress. CV: RRR. Without m/r/g. Pulses intact. Cap refill <2seconds MSK: TTP over b/l lumbar paraspinal muscles and hips. Pain with flexion and extension of spine. Positive SLR b/l for low back pain without radiation. Positive JONATHAN for back pain b/l. Strength 5/5 B/L LEs including dorsiflexion and plantar flexion. FROM B/L LEs. No edema. NEURO: Alert. Sensations intact B/L LEs L3-S1. Reflexes intact PSYCH: Age appropriate behavior. Triage Information Reviewed: Yes Vital Signs: Initial Vital Signs Temp 99.0 F 11/12/18 12:40 Pulse 76 11/12/18 12:40 Resp 18 11/12/18 12:40 BP 138/74 11/12/18 12:40 Pulse Ox 100 11/12/18 12:40 Vital Signs Reviewed: Yes Back Pain Course/Dx - Course Course Of Treatment: Suspect low back strain/muscle spasm. Pt was given toradol IM in the clinic and rx for flexeril and mobic. Advised to rest and apply heat to her back. F/u if symptoms do not improve. - Differential Dx/Diagnosis Provider Diagnosis: Low back pain Discharge - Sign-Out/Discharge Documenting (check all that apply): Patient Departure All imaging exams completed and their final reports reviewed: No Studies - Discharge Plan Condition: Stable Disposition: HOME Prescriptions: Cyclobenzaprine TAB* [Flexeril 10 MG TAB*] 10 mg PO TID PRN #21 tab PRN Reason: Pain Meloxicam [Mobic] 7.5 mg PO BID PRN #20 tablet PRN Reason: Pain Patient Education Materials: Muscle Spasm (ED), Lower Back Exercises (ED) Forms: *Work Release Referrals: Jo Barney CNM [Primary Care Provider] - Additional Instructions: If you develop a fever, shortness of breath, chest pain, new or worsening symptoms - please call your PCP or go to the ED. Your blood pressure was high at todays visit. Please see your primary provider within 4 weeks for recheck and re-evaluation. Rest and apply heat to your back to reduce pain. Follow up with Physical therapy as intended - Billing Disposition and Condition Condition: STABLE Disposition: Home - Attestation Statements Provider Attestation: Per institutional requirements, I have reviewed the chart, however, I was not consulted specifically or made aware of this patient by the midlevel provider. I did not personally evaluate, interact with , or disposition this patient.
[2018-11-12] MEDS ORDERED: Ketorolac INJ* 60 MG/2 ML VIAL IM ONE (13:20)
== END 2018-11-12 13:42 | disposition home or self-care (01) ==
LOC: UCEAST 12:18
DX: M54.5 Low back pain (principal); M25.552 Pain in left hip; M25.551 Pain in right hip; Z88.6 Allergy status to analgesic agent; Z87.891 Personal history of nicotine dependence
CPT/HCPCS: 96372; 99212; G0463; J1885

== ENCOUNTER 2019-01-23 15:40 | Emergency (ER) | payer OTHER, MEDICAID ==
[2019-01-23 16:00] VITALS: BP 134/82
--- NOTE | 2019-01-23 16:53 | UC ---
Lower Extremity/Ankle HPI - HPI Summary HPI Summary: 23 yo female with bilateral foot pain x 3-4 days onset after pushing daughter in stroller for about a mile one her feet all day at work taking ibuprofen - History of Current Complaint Chief Complaint: UCLowerExtremity Stated Complaint: FOOT PAIN Time Seen by Provider: 01/23/19 16:22 Hx Obtained From: Patient Hx Last Menstrual Period: unknown Onset/Duration: Gradual Onset, Lasting Days Severity Initially: Moderate Pain Intensity: 5 Pain Scale Used: 0-10 Numeric Aggravating Factor(s): Standing, Ambulation Alleviating Factor(s): Rest, Elevation Able to Bear Weight: Yes Feet (Multiple View): 1 - pain 2 - pain - Allergies/Home Medications Allergies/Adverse Reactions: Allergies Allergy/AdvReac Type Severity Reaction Status Date / Time aspirin Allergy Nausea Verified 01/23/19 16:00 Home Medications: Home Medications NK [No Home Medications Reported] 01/23/19 [History Confirmed 01/23/19] PMH/Surg Hx/FS Hx/Imm Hx Previously Healthy: Yes Other History Of: Negative For: Anticoagulant Therapy - Surgical History Surgical History: Yes Surgery Procedure, Year, and Place: Uterine Ablasion - Family History Known Family History: Positive: Cardiac Disease, Hypertension, Diabetes Negative: Blood Disorder - Social History Alcohol Use: Rare Substance Use Type: None Substance Use Comment - Amount & Last Used: nohting recently Smoking Status (MU): Light Every Day Tobacco Smoker Type: Cigarettes Amount Used/How Often: 1 cig./week Length of Time of Smoking/Using Tobacco: 9 years Have You Smoked in the Last Year: No - Immunization History Most Recent Influenza Vaccination: 05/06/18 Most Recent Tetanus Shot: utd Most Recent Pneumonia Vaccination: never Review of Systems All Other Systems Reviewed And Are Negative: Yes Constitutional: Positive: Negative Skin: Positive: Negative Eyes: Positive: Negative ENT: Positive: Negative Respiratory: Positive: Negative Cardiovascular: Positive: Negative Gastrointestinal: Positive: Negative Genitourinary: Positive: Negative Neurovascular: Positive: Negative Musculoskeletal: Positive: Arthralgia Neurological: Positive: Negative Psychological: Positive: Negative Physical Exam Triage Information Reviewed: Yes Appearance: Well-Appearing, No Pain Distress, Well-Nourished Vital Signs: Initial Vital Signs Temp 98.9 F 01/23/19 15:55 Pulse 87 01/23/19 15:55 Resp 18 01/23/19 15:55 BP 134/82 01/23/19 15:55 Pulse Ox 100 01/23/19 15:55 Vital Signs Reviewed: Yes Eyes: Positive: Conjunctiva Clear ENT: Positive: Hearing grossly normal. Negative: Pharyngeal erythema, Nasal congestion, Tonsillar swelling, Tonsillar exudate, Hoarse voice, Uvula midline Dental Exam: Normal Neck: Positive: Supple, Nontender, No Lymphadenopathy Respiratory: Positive: Lungs clear, Normal breath sounds, No respiratory distress, No accessory muscle use Cardiovascular: Positive: RRR, No Murmur Musculoskeletal: Positive: Edema @ - slight edema dorsum of both feet Neurological: Positive: Alert Psychological Exam: Normal Skin Exam: Normal Lower Extremity Course/Dx - Differential Dx/Diagnosis Provider Diagnosis: Metatarsalgia of both feet Discharge - Sign-Out/Discharge Documenting (check all that apply): Patient Departure All imaging exams completed and their final reports reviewed: Yes - Discharge Plan Condition: Stable Disposition: HOME Patient Education Materials: Metatarsalgia (DC), Post Surgical Shoe (ED) Referrals: [facility] [Outside] - As Soon As Possible Additional Instructions: motrin 600mg 4 x dy with food for pain - Billing Disposition and Condition Condition: STABLE Disposition: Home
== END 2019-01-23 17:19 | disposition home or self-care (01) ==
LOC: UCEAST 15:40
DX: M77.42 Metatarsalgia, left foot (principal); M77.41 Metatarsalgia, right foot; X50.0XXA Overexertion from strenuous movement or load, initial encounter; Y93.01 Activity, walking, marching and hiking; Y92.9 Unspecified place or not applicable; F17.210 Nicotine dependence, cigarettes, uncomplicated
CPT/HCPCS: 99212; G0463

== ENCOUNTER 2019-05-21 17:14 | Emergency (ER) | payer OTHER, MEDICAID ==
[2019-05-21 17:31] VITALS: BP 127/83
[2019-05-21] MEDS ORDERED: Ibuprofen TAB* 600 MG PO ONE (18:56)
--- NOTE | 2019-05-21 20:00 | UC ---
Lower Extremity/Ankle HPI - HPI Summary HPI Summary: 23 year old female, no PMH, + for 4 pregnancies with h/o pelvic dysfunction. Patient noted ~ 2 days ago starting having calf/ lower ankle pain. Denies trauma, denies injury. No OCP, no recent travel/ sitting for longer periods. Denies SOB, chest pain, no other symptoms. No back pain. Patient states now pain starting to increase into knee with diffuse pain, stopping right above thigh. no swelling, bruising, redness, no fever, chills. - History of Current Complaint Chief Complaint: UCLowerExtremity Stated Complaint: RIGHT LEG COMPLAINT Time Seen by Provider: 05/21/19 18:27 Hx Obtained From: Patient Hx Last Menstrual Period: 04/29/19 ?: No Onset/Duration: Sudden Onset, Lasting Days - 2+ days Severity Initially: Moderate Severity Currently: Moderate Pain Intensity: 5 Pain Scale Used: 0-10 Numeric Aggravating Factor(s): Standing, Ambulation Alleviating Factor(s): Rest, Nothing Able to Bear Weight: Yes - painful - Allergies/Home Medications Allergies/Adverse Reactions: Allergies Allergy/AdvReac Type Severity Reaction Status Date / Time aspirin Allergy Nausea Verified 05/21/19 17:31 PMH/Surg Hx/FS Hx/Imm Hx Previously Healthy: Yes Other History Of: Negative For: Anticoagulant Therapy - Surgical History Surgical History: Yes Surgery Procedure, Year, and Place: Uterine Ablasion - Family History Known Family History: Positive: Cardiac Disease, Hypertension, Diabetes, Non- Contributory Negative: Blood Disorder - Social History Alcohol Use: Occasionally Substance Use Type: None Substance Use Comment - Amount & Last Used: nohting recently Smoking Status (MU): Light Every Day Tobacco Smoker Type: Cigarettes Amount Used/How Often: 1 cig./week Length of Time of Smoking/Using Tobacco: 9 years Have You Smoked in the Last Year: No - Immunization History Most Recent Influenza Vaccination: 05/06/18 Most Recent Tetanus Shot: utd Most Recent Pneumonia Vaccination: never Review of Systems All Other Systems Reviewed And Are Negative: Yes Constitutional: Positive: Negative Skin: Positive: Negative Respiratory: Positive: Negative Cardiovascular: Positive: Negative Musculoskeletal: Positive: Arthralgia, Calf Tenderness, Myalgia. Negative: Decreased ROM, Edema Is Patient Immunocompromised?: No Physical Exam Triage Information Reviewed: Yes Appearance: Well-Appearing, No Pain Distress, Well-Nourished Vital Signs: Initial Vital Signs Temp 98.4 F 05/21/19 17:28 Pulse 71 05/21/19 17:28 Resp 18 05/21/19 17:28 BP 127/83 05/21/19 17:28 Pulse Ox 100 05/21/19 17:28 Vital Signs Reviewed: Yes Eyes: Positive: Conjunctiva Clear Musculoskeletal: Positive: Other: - TTP diffuse over right knee, ROM- 0-110 with pain at endpoint flexion, no instability noted, no JF noted, no edema, TTP over posterior calf, with PF/ DF of foot, ankle non-tender to palpation. PT 2+ . Neurological Exam: Normal Psychological Exam: Normal Skin: Positive: Other - no open wounds, sores, no erythema, warmth Lower Extremity Course/Dx - Course Course Of Treatment: US- prelim read negative for DVT. - Blood work drawn, will follow up - Case discussed with Dr. Parsons Leg pain of unknown origin, blood work for further evaluation, [facility] connections number given for follow up. Return with worsening symptoms. - Differential Dx/Diagnosis Differential Diagnosis/HQI/PQRI: Contusion, Osteomyelitis, Phlebitis, Sprain, Strain, Tendonitis Provider Diagnosis: Leg pain, right Discharge ED - Sign-Out/Discharge Documenting (check all that apply): Patient Departure All imaging exams completed and their final reports reviewed: Yes - Discharge Plan Condition: Good Disposition: HOME Patient Education Materials: Leg Pain (ED) Referrals: [facility] [Outside] No Primary Care Phys,NOPCP [Primary Care Provider] - Additional Instructions: Leg pain, unknown source for leg pain - Motrin 600mg every 6 hours for pain, to decrease swelling in hip bursitis due to IT band - Elevate, rest leg as much as possible - Follow up with lab results- you will be called with abnormal values, should be done within 1-5 days depending on testing - US negative for DVT - Billing Disposition and Condition Condition: GOOD Disposition: Home - Attestation Statements Provider Attestation: Per institutional requirements, I have reviewed the chart.. I did not personally evaluate, interact with , or disposition this patient.
[2019-05-22 12:33] LABS: ABS Basophils 0.1 10^3/ul (0-0.2); ABS Eosinophils 0.2 10^3/ul (0-0.6); ABS Monocytes 0.5 10^3/ul (0-0.8); ABS Neutrophils 7.1 10^3/ul (1.5-7.7); Eosinophil % 2.3 %; Hematocrit 40 % (35-47); Hemoglobin 13.8 g/dL (12.0-16.0); Lymphocyte % 27.9 %; Mean Corpuscular HGB Conc 34 g/dL (31-36); Mean Corpuscular Hemoglobin 30 pg (27-31); Mean Corpuscular Volume 86 fL (80-97); Mean Platelet Volume 9.4 fL (7.4-10.4); Nucleated Red Blood Cells % 0.1; Platelet Count 263 10^3/uL (150-450); Red Blood Count 4.67 10^6 /uL (3.70-4.87); Red Cell Distribution Width 14 % (10-15); White Blood Count 10.9 10^3/uL (3.5-10.8)
[2019-05-22 12:44] LABS: Albumin 4.2 g/dL (3.2-5.2); Albumin/Globulin Ratio 1.6 (1-3); BUN/Creatinine Ratio 23.5 (8-20); C Reactive Protein 5.97 mg/L (<8.01); Calcium 9.5 mg/dL (8.6-10.3); EGFR African American 128.6 (>60); EGFR Non-African American 106.3 (>60); Globulin 2.7 g/dL (2-4); Magnesium 1.8 mg/dL (1.9-2.7); Potassium 3.9 mmol/L (3.5-5.0); Total Bilirubin 0.3 mg/dL (0.2-1.0); Total Protein 6.9 g/dL (6.4-8.9)
[2019-05-22 12:58] LABS: TSH (Thyroid Stimulating Horm) 4.35 mcIU/mL (0.34-5.60)
[2019-05-22 13:49] LABS: Erythrocyte Sed Rate 14 mm/Hr (0-19)
--- NOTE | 2019-05-22 16:25 | UC ---
- Progress Note Progress Note: Laboratory results returned from May 21, 2019. Patient was seen here for leg pain of unknown origin. She had a negative venous Doppler here in clinic. Her white blood cell count comes back slightly elevated at 10.9 thousand normal is 3.5-10,800. Her magnesium was slightly low at 1.8 normal is 1.9-2.7. The rest of her lab work was normal. Patient to be called by nursing to inform the patient of the results and if the patient is not improving or worsening they need to follow-up with her primary care physician or go to the emergency department. Course/Dx - Diagnoses Provider Diagnoses: Leg pain, right Discharge ED - Sign-Out/Discharge Documenting (check all that apply): Patient Departure All imaging exams completed and their final reports reviewed: Yes - Discharge Plan Condition: Good Disposition: HOME Patient Education Materials: Leg Pain (ED) Referrals: [facility] [Outside] No Primary Care Phys,NOPCP [Primary Care Provider] - Additional Instructions: Leg pain, unknown source for leg pain - Motrin 600mg every 6 hours for pain, to decrease swelling in hip bursitis due to IT band - Elevate, rest leg as much as possible - Follow up with lab results- you will be called with abnormal values, should be done within 1-5 days depending on testing - US negative for DVT - Billing Disposition and Condition Condition: GOOD Disposition: Home
== END 2019-05-21 20:22 | disposition home or self-care (01) ==
LOC: UCEAST 17:14
DX: M79.661 Pain in right lower leg (principal); F17.290 Nicotine dependence, other tobacco product, uncomplicated; M79.10 Myalgia, unspecified site; Z79.82 Long term (current) use of aspirin
CPT/HCPCS: 36415; 80053; 83735; 84443; 85025; 85652; 86140; 86618; 99212; A9270-GY; G0463

== ENCOUNTER 2019-05-28 10:46 | Emergency (ER) | payer MEDICAID ==
--- OUTSIDE RECORDS SUMMARY | 2019-05-28 10:53 | XMS REPORT | Continuity of Care Document ---
:1995 External Reference #:[id number] Author Name Meenu Wynn M.D. 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 Onset: 05/24/2019 Arthralgia of the ankle and/or foot Meenu Wynn M.D. Onset: 05/24/2019 Social History Type Date Description Comments Sex Unknown Tobacco Use Start: Unknown Patient is a current smoker, smokes every day Smoking Status Reviewed: 05/24/19 Patient is a current smoker, smokes every day Allergies, Adverse Reactions, Alerts Active Allergies Reaction Severity Comments Date Aspirin vomitting, hearing loss, blurred 05/24/2019 vision, dizziness Medications Description No Active Medications Medications Administered in Office Medication SIG Qnty Indications Ordering Provider Date PPD Injection Gamal Medina MD 08/29/2018 Immunizations Description No Information Available Vital Signs Date Vital Result Comment 05/24/2019 12:58pm Height 70 inches 5'10" Weight 286.00 lb Heart Rate 78 /min BP Systolic 124 mmHg BP Diastolic 88 mmHg Body Temperature 98.7 F Pain Level 6 BMI (Body Mass Index) 41.0 kg/m2 Results Test Date Facility Test Result H/L Range Note Comp Metabolic 05/21/2019 Sodium 135 mmol/L Normal 135-[address] [place] [address] [phone] Potassium 3.9 mmol/L Normal 3.5-5.0 Chloride 104 mmol/L Normal 101-111 Co2 Carbon Dioxide 24 mmol/L Normal 22-32 Anion Gap 7 mmol/L Normal 2-11 Glucose 88 mg/dL Normal 70-100 Blood Urea Nitrogen 16 mg/dL Normal 6-24 Creatinine 0.68 mg/dL Normal 0.51-0.95 BUN/Creatinine Ratio 23.5 High 8-20 Calcium 9.5 mg/dL Normal 8.6-10.3 Total Protein 6.9 g/dL Normal 6.4-8.9 Albumin 4.2 g/dL Normal 3.2-5.2 Globulin 2.7 g/dL Normal 2-4 Albumin/Globulin Ratio 1.6 Normal 1-3 Total Bilirubin 0.30 mg/dL Normal 0.2-1.0 Alkaline Phosphatase 82 U/L Normal 34-104 Alt 22 U/L Normal 7-52 Ast 15 U/L Normal 13-39 Egfr Non- 106.3 >60 Egfr 128.6 >60 1 Laboratory test 05/21/2019 Magnesium 1.8 mg/dL Low 1.9-2.7 [address] [place] [address] [phone] C Reactive Protein 5.97 mg/L Normal <8.01 3 TSH (Thyroid Stim Horm) 4.35 mcIU/mL Normal 0.34-5.60 4 CBC Auto 05/21/2019 White Blood 10.9 10^3/uL High 3.5-10.[address] [place] [address] [phone] Red Blood Count 4.67 10^6/uL Normal 3.70-4.87 Hemoglobin 13.8 g/dL Normal 12.0-16.0 Hematocrit 40 % Normal 35-47 Mean Corpuscular Volume 86 fL Normal 80-97 Mean Corpuscular Hemoglobin 30 pg Normal 27-31 Mean Corpuscular HGB Conc 34 g/dL Normal 31-36 Red Cell Distribution Width 14 % Normal 10-15 Platelet Count 263 10^3/uL Normal 150-450 Mean Platelet Volume 9.4 fL Normal 7.4-10.4 Abs Neutrophils 7.1 10^3/uL Normal 1.5-7.7 Abs Lymphocytes 3.0 10^3/uL Normal 1.0-4.8 Abs Monocytes 0.5 10^3/uL Normal 0-0.8 Abs Eosinophils 0.2 10^3/uL Normal 0-0.6 Abs Basophils 0.1 10^3/uL Normal 0-0.2 Abs Nucleated RBC 0.0 10^3/uL Granulocyte % 64.5 % Lymphocyte % 27.9 % Monocyte % 4.7 % Eosinophil % 2.3 % Basophil % 0.6 % Nucleated Red Blood Cells % 0.1 Laboratory test 05/21/2019 Erythrocyte Sed 14 mm/Hr Normal 0-[address] [place] [address] [phone] Lyme Screen W/ Reflex To WB Negative Negative 1 Because ethnic data is not always readily available, this report includes an eGFR for both -Americans and non- Americans. The National Kidney Disease Education Program (NKDEP) does not endorse the use of the MDRD equation for patients that are not between the ages of 18 and 70, are , have extremes of body size, muscle mass, or nutritional status, or are non- or non-. According to the National Kidney Foundation, irrespective of diagnosis, the stage of the disease is based on the level of kidney function: Stage Description GFR(mL/min/1.73 m(2)) 1 Kidney damage with normal or decreased GFR 90 2 Kidney damage with mild decrease in GFR 60-89 3 Moderate decrease in GFR 30-59 4 Severe decrease in GFR 15-29 5 Kidney failure <15 (or dialysis) 2 [id number] 3 [id number] 4 [id number] Procedures Description No Information Available Medical Devices Description No Information Available Encounters Description No Information Available Assessments Date Code Description Provider 05/24/2019 M79.604 Pain in right leg Meenu Wynn M.D. 05/24/2019 M79.651 Pain in right thigh Meenu Wynn M.D. 05/24/2019 M25.571 Pain in right ankle and joints of right foot Meenu Wynn M.D. 05/24/2019 M25.561 Pain in right knee Meenu Wynn M.D. Plan of Treatment 05/24/2019 - Meenu Wynn M.D.M79.604 Pain in right legNew Xrays:Femur Right, Ordered: 05/24/19Lower Leg Right, Ordered: 05/24/19Referral:Billy Garcia MD, Surgery,NeurologicalFollow up:Follow up: spine mjlzxyN51.651 Pain in right ysykkY91.571 Pain in right ankle and joints of right footM25.561 Pain in right knee Functional Status Description No Information Available Mental Status Description No Information Available Referrals Refer to Reason for Referral Status Appt Date Billy Garcia MD spine clinic - eval lower lumbar spine Sent [address] [place] [address] [phone]
--- OUTSIDE RECORDS SUMMARY | 2019-05-28 10:53 | XMS REPORT | Continuity of Care Document ---
:1995 External Reference #:[id number] Author Name RADHA Nicole Address [address] [place] [address] Care Team Providers Name Role Phone Nel Martinez - Family Medicine Care Team Information Billet Examiner [phone] Problems Description No Information Available Social History Type Date Description Comments Sex Unknown Tobacco Use Start: Unknown "Social" Smoker smokes when stressed out. 2 cigs a week. ETOH Use Rare Exercise Type/Frequency Exercises regularly walks, housework, Allergies, Adverse Reactions, Alerts Active Allergies Reaction Severity Comments Date Aspirin Dizziness, vomiting, blurred vision 05/23/2019 Medications Active Medications SIG Qnty Indications Ordering Provider Date Medrol use as directed 1units M48.062 Nel Dodge 05/24/2019 4mg TBPK Patricia Martinez Hydrocodone 1 -2 by mouth 40tabs M48.062 Nel Dodge 05/24/2019 Bitartrate/Acetaminop four times a day Patricia Martinez hen 5-325mg Tablets Meloxicam take 1 tablet 1 60tabs M48.06Traci Dodge 05/24/2019 7.5mg Tablets to 2 times a day Patricia Martinez with food in your stomach. Physical Therapy evaluate and M48.062 Nel Dodge 05/24/2019 treat spinal Patricia Martinez stenosis and right sciatica History Medications No Active Medications Unknown 05/23/2019 - 05/24/2019 Immunizations Description No Information Available Vital Signs Date Vital Result Comment 05/24/2019 2:32pm BP Systolic 122 mmHg BP Diastolic 70 mmHg Heart Rate 76 /min Body Temperature 98.1 F Height 70 inches 5'10" 05/23/2019 2:58pm BP Systolic 122 mmHg BP Diastolic 80 mmHg Heart Rate 78 /min Body Temperature 97.7 F Height 70 inches 5'10" Weight 286.00 lb BMI (Body Mass Index) 41.0 kg/m2 Results Description No Information Available Procedures Description No Information Available Medical Devices Description No Information Available Encounters Description No Information Available Assessments Date Code Description Provider 05/24/2019 M48.062 Spinal stenosis, lumbar region with Nel Martinez M.D. neurogenic claudication 05/23/2019 M79.604 Pain in right leg RADHA Nicole Plan of Treatment Future Appointment(s):06/04/2019 1:00 pm - Nel [facility] M.D. at [facility]05/24/2019 - Nel Martinez M.D.M48.062 Spinal stenosis, lumbar region with neurogenic claudicationNew Medication:Medrol 4 mg - use as directedHydrocodone Bitartrate/Acetaminophen 5-325 mg - 1 -2 by mouth four times a dayMeloxicam 7.5 mg - take 1 tablet 1 to 2 times a day with food in your stomach.Physical Therapy - evaluate and treat spinal stenosis and right sciaticaComments:take medrol dose mini - dereasing doses.Start the hydrocodonewhen done with medrol dose mini - start meloxicamPhysical therapywatch out for constipation. You know what to do for the constipation. MRI lumbar spine. appt with Dr. Maldonado up:1 week.AllComments: Medication Management Patient Understands medications she's taking? Yes No Are there Barriers to Adherence? Yes No Has the patient been asked about herbal supplements and therapies, and OTC meds? Yes No Functional Status Description No Information Available Mental Status Description No Information Available Referrals Refer to Reason for Referral Status Appt Date Billy Garcia MD lumbar radiculopathy/spinal stenosis jw Created [address] [place] [address] [phone] Andreas Brothers MD RLE pain swelling numbness negative us at Scheduled con care jw [address] [facility] [place] [address] [place] [address] [phone]
--- OUTSIDE RECORDS SUMMARY | 2019-05-28 10:53 | XMS REPORT | Continuity of Care Document ---
:1995 External Reference #:[id number] Author Name Nel Martinez M.D. 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 at [facility] Md[facility]wl1605/25/2019 9:50 am - Nel Martinez M.D. at [id number] - GERI Nicole79.604 Pain in right legFollow up:Followup:. ( Follow up)AllNew Medication:No Active Medications - Functional Status Description No Information Available Mental Status Description No Information Available Referrals Refer to Reason for Referral Status Appt Date Andreas Brothers MD RLE pain swelling numbness negative us at Scheduled con [address] [address] [phone]
[2019-05-28 11:24] VITALS: BP 139/89
[2019-05-28] MEDS ORDERED: Penicillin G Benzathine 1.2MU* 1,200,000 UNITS/2 ML SYR IM ONE (12:10)
--- NOTE | 2019-05-28 12:15 | UC ---
Throat Pain/Nasal [place] HPI - HPI Summary HPI Summary: 23-year-old female who has had a sore throat and intermittent low-grade fever for the past 2 days. Although it hurts to swallow she is able to swallow her saliva. - History of Current Complaint Chief Complaint: UCGeneralIllness Stated Complaint: SORE THROAT Time Seen by Provider: 05/28/19 11:41 Hx Obtained From: Patient Hx Last Menstrual Period: 05/23/19 ?: No Onset/Duration: Gradual Onset Severity: Moderate Pain Intensity: 4 Cough: None Associated Signs & Symptoms: Positive: Fever - Low-grade fever - Allergies/Home Medications Allergies/Adverse Reactions: Allergies Allergy/AdvReac Type Severity Reaction Status Date / Time aspirin Allergy Nausea Verified 05/28/19 11:17 Home Medications: Home Medications HYDROcodone/ACETAMIN 5-325 MG* [[place] 5-325 TAB*] 1 tab PO Q4H PRN 05/28/19 [ History Confirmed 05/28/19] Meloxicam 7.5 mg PO DAILY 05/28/19 [History Confirmed 05/28/19] predniSONE TAB* [Deltasone 20 MG TAB*] 60 mg PO DAILY 05/28/19 [History Confirmed 05/28/19] PMH/Surg Hx/FS Hx/Imm Hx Previously Healthy: Yes Other History Of: Negative For: Anticoagulant Therapy - Surgical History Surgical History: Yes Surgery Procedure, Year, and Place: Uterine Ablasion - Family History Known Family History: Positive: Cardiac Disease, Hypertension, Diabetes, Non- Contributory Negative: Blood Disorder - Social History Occupation: Employed Full-time Alcohol Use: None Substance Use Type: None Substance Use Comment - Amount & Last Used: nohting recently Smoking Status (MU): Light Every Day Tobacco Smoker Type: Cigarettes Amount Used/How Often: 1 cig./week Length of Time of Smoking/Using Tobacco: 9 years Have You Smoked in the Last Year: No - Immunization History Most Recent Influenza Vaccination: 05/06/18 Most Recent Tetanus Shot: utd Most Recent Pneumonia Vaccination: never Review of Systems All Other Systems Reviewed And Are Negative: Yes Constitutional: Positive: Fever ENT: Positive: Sore Throat Is Patient Immunocompromised?: No Physical Exam Triage Information Reviewed: Yes Appearance: Well-Appearing, No Pain Distress, Well-Nourished Vital Signs: Initial Vital Signs Temp 99.2 F 05/28/19 11:19 Pulse 103 05/28/19 11:19 Resp 20 05/28/19 11:19 BP 139/89 05/28/19 11:19 Pulse Ox 98 05/28/19 11:19 Vital Signs Reviewed: Yes Eyes: Positive: Conjunctiva Clear ENT: Positive: Pharyngeal erythema, TMs normal, Tonsillar swelling, Uvula midline, Other - "Strep sounding voice". Negative: Tonsillar exudate, Trismus, Hoarse voice Neck: Positive: Supple, Nontender, Enlarged Nodes @ - Bilateral tonsillar lymph node enlargement. Respiratory: Positive: Lungs clear, Normal breath sounds, No respiratory distress, No accessory muscle use Cardiovascular: Positive: RRR, No Murmur, Pulses Normal, Brisk Capillary Refill Musculoskeletal Exam: Normal Neurological Exam: Normal Psychological Exam: Normal Skin Exam: Normal Throat Pain/Nasal Course/Dx - Course Course Of Treatment: Rapid strep test positive. Although the patient does not have a peritonsillar abscess, she does have a lot of pain with swallowing therefore she opted to have the benzathine penicillin 1.2 million units IM here. She is observed for 15-20 minutes and no adverse reaction was noted. - Differential Dx/Diagnosis Provider Diagnosis: Strep pharyngitis Discharge ED - Sign-Out/Discharge Documenting (check all that apply): Patient Departure All imaging exams completed and their final reports reviewed: No Studies - Discharge Plan Condition: Fair Disposition: HOME Patient Education Materials: Strep Throat (DC) Referrals: Nel Martinez MD [Primary Care Provider] - Additional Instructions: Increase fluids, Tylenol every 4 hours as needed for fever or pain. Warm saltwater gargles. The injection of penicillin that you received today is the complete treatment for strep throat. Definite follow-up with your primary care provider if no improvement in 3 or 4 days. Go to the emergency room if you cannot swallow your saliva. - Billing Disposition and Condition Condition: FAIR Disposition: Home
== END 2019-05-28 12:23 | disposition home or self-care (01) ==
LOC: UCEAST 10:46
DX: J02.0 Streptococcal pharyngitis (principal); F17.210 Nicotine dependence, cigarettes, uncomplicated; Z88.8 Allergy status to other drugs, medicaments and biological substances
CPT/HCPCS: 87651; 96372; 99211; G0463; J0558